=== PATIENT | male | born 1955 | race Caucasian/White ===

== ENCOUNTER → 2024-12-25 11:17 | Outpatient (BNVA) | payer OTHER, MEDICARE, SELFPAY | PROVIDERS: PCP Family Medicine; Visit Provider Family Medicine | DX: I10 Essential (primary) hypertension (principal); D50.8 Other iron deficiency anemias; D51.9 Vitamin B12 deficiency anemia, unspecified; R60.0 Localized edema | CPT/HCPCS: 80053; 80061; 82607; 83540; 84443; 85025 ==

== ENCOUNTER → 2025-07-02 07:40 | Outpatient (BNVA) | payer MEDICARE, OTHER, SELFPAY | PROVIDERS: PCP Family Medicine; Visit Provider Student in an Organized Health Care Education/Training Program | DX: Z12.11 Encounter for screening for malignant neoplasm of colon (principal) | CPT/HCPCS: 99204 ==

== ENCOUNTER 2025-07-09 06:18 | Day surgery (SDC) | payer MEDICARE, OTHER, SELFPAY ==
[2025-07-09 06:50] VITALS: BP 137/67; PULSE 76; RESP 18; TEMP 36.1; O2SAT 98; BMI 62.6
--- NOTE | 2025-07-09 07:06 | W.PM.OPSUD ---
Surgery/Procedure H&P Update DATE OF PROCEDURE: July 09, 2025 DATE H&P PERFORMED: 07/02/25 H&P UPDATE INFORMATION: I have reviewed H&P completed within last 30 days, I have examined patient prior to procedure, No changes to prior documentation and Risks and benefits of the procedure reviewed PLANNED PROCEDURE: Operation Date: 07/09/25 08:00 Proposed Procedures p Colonoscopy [id number] G0121 Z12.11(Not Applicable) - Guanako Colón MD
[2025-07-09 07:52] VITALS: BP 120/63; PULSE 70; RESP 12; TEMP 36.4; O2SAT 98
--- NOTE | 2025-07-09 07:57 | ANES.PREANE2 ---
Pre-Anesthetic Assessment Height/Weight: Height 1.78 m Weight 198.22 kg Temp Pulse Resp BP Pulse Ox O2 Del Method 97 F L 76 18 137/67 98 Room Air 07/09/25 06:50 07/09/25 06:50 07/09/25 06:50 07/09/25 06:50 07/09/25 06:50 07/09/25 06:50 Operation Date: 07/09/25 08:00 Proposed Procedures p Colonoscopy [id number] G0121 Z12.11(Not Applicable) - Guanako Colón MD Familial anesthetic complications: NOne Was Beta Hilaria taken within 24 hours: N/A Was Clonidine taken within 24 hours: N/A Last intake: Intake Last Liquid Date 07/08/25 Last Liquid Time 23:00 Last Solid Date 07/07/25 Last Solid Time 17:30 Social No alcohol and No tobacco Exam alert, oriented x 3, clear to auscultation bilaterally and regular rate & rhythm CV/HEM Hypertension pacemaker Chronic Renal Insufficiency GI Gastroesophageal Reflux Disease Metabolic Morbid Obesity Anesthetic Plan ASA status: 3 Anesthesia: MAC Risk of > 500 ml blood loss (7ml/kg in children): No Medications/Allergies Home Medications ?Medication ?Instructions ?Recorded ?Confirmed ?Last Taken ?Type escitalopram oxalate 10 mg tablet 10 mg PO DAILY #90 tabs 06/26/24 07/04/25 07/04/25 05:30 Rx tizanidine 4 mg capsule 4 mg PO Q8H PRN Acid Reflux 06/26/24 07/04/25 07/04/25 05:30 History torsemide 10 mg tablet 10 mg PO DAILY PRN Acid Reflux 06/26/24 07/04/25 Unknown History lisinopril 20 mg tablet 20 mg PO DAILY #90 tabs 10/02/24 07/04/25 07/04/25 05:30 Rx bupropion HCl 150 mg 24 hr tablet, 150 mg PO DAILY #90 tabs 12/25/24 07/04/25 07/04/25 05:30 Rx extended release ferrous gluconate 324 mg (37.5 mg 324 mg PO BID #180 tabs 12/25/24 07/04/25 07/04/25 05:30 Rx iron) tablet omeprazole 20 mg capsule,delayed 20 mg PO DAILY #90 caps 12/25/24 07/04/25 07/04/25 05:30 Rx release triamterene 37.5 2 cap PO DAILY #180 caps 12/25/24 07/04/25 07/04/25 05:30 Rx mg-hydrochlorothiazide 25 mg capsule gabapentin 300 mg capsule 300 mg PO QID #360 caps 04/15/25 07/04/25 07/04/25 05:30 Rx alprazolam 0.5 mg tablet 0.5 mg PO BID PRN anxiety #60 tabs 06/14/25 07/04/25 07/04/25 05:30 Rx tamsulosin 0.4 mg capsule 0.4 mg PO .qpm #30 caps 06/14/25 07/04/25 07/03/25 23:00 Rx oxycodone 5 mg tablet 5 mg PO Q6H PRN pain 30 days #90 06/27/25 07/04/25 07/04/25 05:30 Rx tabs cholecalciferol (vitamin D3) 10 10 mcg PO DAILY 07/02/25 07/04/25 07/04/25 05:30 History mcg (400 unit) capsule mecobalamin (vitamin B12) 1,000 1,000 mcg PO DAILY 07/02/25 07/04/25 07/04/25 05:30 History mcg chewable tablet zinc gluconate 30 mg tablet 30 mg PO ONCE 07/02/25 07/04/25 07/03/25 23:00 History Allergies Allergy/AdvReac Type Severity Reaction Status Date / Time furosemide (From Lasix) Allergy FLUID Verified 07/02/25 07:54 RETENTION hydrocodone Allergy makes pain Verified 07/02/25 07:54 worse and knee swell Current Medications Generic Name Dose Route Start Last Admin Trade Name Freq PRN Reason Stop Dose Admin Sodium Chloride 1,000 mls @ 15 mls/hr 07/09/25 06:25 07/09/25 07:00 Sodium Chloride 0.9% IV 07/10/25 06:24 15 mls/hr .Q24H PRN Administration COLONOSCOPY FLUIDS PFSH Anesthesia Medical History (Updated 07/02/25 @ 08:01 by CE Hamilton) Urinary dribbling Hx of colonic polyp tubular adenoma 2018 at [facility] CKD stage 3a, GFR 45-59 ml/min Complete AV block has pacemaker now Encounter for chronic pain management Osteoarthritis of knees, bilateral not surgical candidate; has left him in wheel chair; pain meds to control pain Pain management contract signed Anxiety Bilateral lower extremity edema Morbid obesity with BMI of 60.0-69.9, adult Depression with anxiety Unspecified chronic gastritis with bleeding B12 deficiency anemia Iron deficiency anemia MANUEL on CPAP Chronic knee pain HTN (hypertension) with goal to be determined Pacemaker placed 12.5.22 Surgical History Hx of esophagogastroduodenoscopy 11.08 at [facility] Hx of colonoscopy with polypectomy 4.18--tubular adenoma--to repeat 3 yrs but when went to get it done they wouldn't do it without cardio approval History of carpal tunnel surgery of left wrist Hx of pilonidal cyst X 2 Hx of tonsillectomy and adenoidectomy History of cholecystectomy Hx of appendectomy Family History Father Aneurysm Mother Diabetes mellitus, type 2 Kidney disease Multiple organ failure Social History Smoking and tobacco/nicotine status: never used tobacco/nicotine Alcohol intake: never Substance/Drug Use: never Household members: none Housing: Apartment Marital status: Single Number of children: 0 Highest education level completed: Some College, No Degree Current occupational status: retired Previous occupational history: [employer]
[2025-07-09 08:30] VITALS: BP 169/80; PULSE 100; RESP 16; O2SAT 96
--- NOTE | 2025-07-09 08:30 | ANE.PACU2 ---
Inpatient post-anesthesia follow up: Airway intact: Yes Vital signs: Temperature 97.6 F Pulse Rate 100 Respiratory Rate 16 Blood Pressure 169/80 Pulse Oximetry 96 Oxygen Delivery Me thod Room Air Oxygen Flow Rate Fraction of Inspir ed Oxygen Hydration adequate: Yes Nausea and vomiting: No Pain level: 1 Mental status: Baseline
== END 2025-07-09 08:34 | disposition home or self-care (01) ==
PROVIDERS: PCP Family Medicine; Visit Provider Student in an Organized Health Care Education/Training Program
PROC: 0DJD8ZZ Inspection of Lower Intestinal Tract, Via Natural or Artificial Opening Endoscopic (ICD-10-PCS; CPT 45378; principal; 2025-07-09 08:00)
DX: Z12.11 Encounter for screening for malignant neoplasm of colon (principal); K57.30 Diverticulosis of large intestine without perforation or abscess without bleeding; D12.0 Benign neoplasm of cecum; Z80.0 Family history of malignant neoplasm of digestive organs; K21.9 Gastro-esophageal reflux disease without esophagitis; Z79.891 Long term (current) use of opiate analgesic; I12.9 Hypertensive chronic kidney disease with stage 1 through stage 4 chronic kidney disease, or unspecified chronic kidney disease; N18.31 Chronic kidney disease, stage 3a; E66.01 Morbid (severe) obesity due to excess calories; Z68.44 Body mass index [BMI] 60.0-69.9, adult; F41.8 Other specified anxiety disorders; G47.33 Obstructive sleep apnea (adult) (pediatric); Z99.89 Dependence on other enabling machines and devices; Z95.0 Presence of cardiac pacemaker
CPT/HCPCS: 45380; 88305; J2371; J2704; J7030; J9999

== ENCOUNTER → 2025-07-23 10:30 | Outpatient (BNVA) | payer MEDICARE, OTHER, SELFPAY | PROVIDERS: PCP Family Medicine; Visit Provider Student in an Organized Health Care Education/Training Program | DX: Z51.89 Encounter for other specified aftercare (principal) | CPT/HCPCS: 99213 ==